=== PATIENT | female | born 1990 | race Caucasian/White ===

== ENCOUNTER 2020-08-15 14:03 | Outpatient (CLI) | payer OTHER ==
[2020-08-15 15:22] LABS: HCT - HEMATOCRIT 38.5 % (37.0-47.0); HGB - HEMOGLOBIN 13.3 g/dL (12.0-16.0); MEAN CORPUSCULAR HEMOGLOBIN 31.1 pg (27.0-31.0); MEAN CORPUSCULAR HGB CONC 34.5 g/dL (32.0-36.0); MEAN CORPUSCULAR VOLUME 90.2 fL (81.0-99.0); MEAN PLATELET VOLUME 9.6 fL (7.9-10.8); RED BLOOD COUNT 4.27 10^6/uL (4.20-5.40); RED CELL DISTRIBUTION WIDTH 12.4 % (12.0-15.0); WHITE BLOOD COUNT 11.5 x10^3/uL (4.8-10.8)
== END 2020-08-15 14:04 | disposition home or self-care (01) ==
LOC: LAB 14:03
PROVIDERS: ATTEND Advanced Practice Midwife
DX: Z34.90 Encounter for supervision of normal pregnancy, unspecified, unspecified trimester (principal)
CPT/HCPCS: 36415; 82950; 85027

== ENCOUNTER 2020-08-17 07:58 | Outpatient (CLI) | payer OTHER ==
[2020-08-17 08:45] LABS: GTT GLUCOSE,FASTING 82 mg/dL (70-100)
== END 2020-08-17 07:59 | disposition home or self-care (01) ==
LOC: LAB 07:58
PROVIDERS: ATTEND Advanced Practice Midwife
DX: O99.810 Abnormal glucose complicating pregnancy (principal)
CPT/HCPCS: 36415; 82951; 82952

== ENCOUNTER 2020-09-18 08:00 | Outpatient (CLI) | payer OTHER | END 2020-09-18 23:59 | disposition home or self-care (01) | LOC: LAB.WC 08:00 | PROVIDERS: ATTEND Nurse Practitioner Obstetrics & Gynecology | DX: R39.15 Urgency of urination (principal) | CPT/HCPCS: 87086 ==

== ENCOUNTER 2020-09-24 11:13 | Outpatient (CLI) | payer OTHER ==
--- NOTE | 2020-09-24 16:30 | Ultrasound Report ---
PROCEDURE: OB F/U or Repeat INDICATIONS: SIZE/DATE DISCREPENCY OUTSIDE/PRIOR DATING DATA: Last menstrual period (LMP): 02/05/2020. LMP-based estimated date of delivery (SRINIVAS): 11/11/2020. First dating scan (date and location): 04/06/2020. Estimated date of delivery (SRINIVAS) from first dating scan: 11/13/2020. The below data below was generated using the clinical SRINIVAS of 11/11/2020 TECHNIQUE: Real-time scanning was performed of the fetus, with image documentation and biometric measurements. COMPARISON: OB ultrasound report 04/06/2020 06/27/2020 07/09/2020 FINDINGS: General: A single living intrauterine gestation is present. Presentation: Vertex Placenta: Placental position is anterior, without previa. Amniotic fluid index: 17.6 cm, within normal limits for gestational age. 6.6 cm heart rate: 138 beats per minute. Maternal cervical canal: Not assessed biometrics: Biparietal diameter: 8.5 cm 34 weeks 1 day Head circumference: 31.7 cm 35 weeks 5 days Abdominal circumference: 31.4 cm 35 weeks 2 days Femur length: 6.1 cm 31 weeks 4 days Estimated gestational age from initial scan: 32 weeks 6 days Composite gestational age from present scan: 34 weeks 1 day Estimated weight and percentile: 23 80 g 82nd percentile Measurement variability in biometric dating: +/- 10 days from 12-20 weeks gestation, +/- 2 weeks from 20-30 weeks gestation, +/- 3 weeks at 30 weeks gestation or more. Other: Not applicable. IMPRESSION: 1. Single live intrauterine within normal limits for growth. 2. Estimated weight 82nd percentile Reviewed by: Lina Keith MD on 09/24/2020 4:28 PM PDT Approved by: Lina Keith MD on 09/24/2020 4:28 PM PDT Station ID: [id number]
--- NOTE | 2020-10-02 08:57 | CONSULTATION NOTE ---
Consultation Report: Asked to see patient by Karina Connor CNM in regards patients previous back surgery and possible regional anesthesia during labor. Patient had L4-S1 Laminectomy(no hardware) about 4 years ago. Still has some right sided leg weakness. No other PMH. has gone well up to this point. Patient is planning unmedicated but is open to possible regional anesthesia. Patient was more worried about unplanned emergency c section leading to General anesthesia. I discussed with her that if she was having an emergency c section she would more than likely require GETA even with an epidural in place. I discussed risks of epidural and spinal anesthesia. Discussed possible difficult placement s/p spinal surgery however I feel the patient will be able to have epidural or SAB if requested without issue. Questions answered.
== END 2020-09-24 11:14 | disposition home or self-care (01) ==
LOC: DI 11:13
PROVIDERS: ATTEND Nurse Practitioner Obstetrics & Gynecology
DX: O26.843 Uterine size-date discrepancy, third trimester (principal); Z3A.34 34 weeks gestation of pregnancy

== ENCOUNTER 2020-10-02 08:00 | Outpatient (CLI) | payer OTHER | END 2020-10-02 23:59 | disposition home or self-care (01) | LOC: LAB 08:00 | PROVIDERS: ATTEND Nurse Practitioner Obstetrics & Gynecology | DX: R39.15 Urgency of urination (principal) | CPT/HCPCS: 87086 ==

== ENCOUNTER 2020-10-18 08:00 | Outpatient (CLI) | payer OTHER ==
--- NOTE | 2020-10-18 14:12 | Ultrasound Report ---
PROCEDURE: OB F/U or Repeat INDICATIONS: UTERINE SIZE DATE DISCREPANCY OUTSIDE/PRIOR DATING DATA: Last menstrual period (LMP): . LMP-based estimated date of delivery (SRINIVAS): 11/11/2020. First dating scan (date and location): 04/06/2020. Estimated date of delivery (SRINIVAS) from first dating scan: 11/13/2020. The below data below was generated using the above SRINIVAS of 11/13/2020 TECHNIQUE: Real-time scanning was performed of the fetus, with image documentation and biometric measurements. Endovaginal scanning: Not needed COMPARISON: All prior OB ultrasound studies for this . FINDINGS: General: A single living intrauterine gestation is present. Presentation: Vertex Placenta: Placental position is anterior, without previa. Amniotic fluid index: 17.3 cm, normal for gestational age. heart rate: 143 beats per minute. Maternal cervical canal is not well seen due to vertex presentation of the fetus. biometrics: Biparietal diameter: 9.1 cm, 37 weeks 0 days Head circumference: 33.4 cm, 38 weeks 1 day Abdominal circumference: 35.5 cm, 39 weeks 3 days Femur length: 7.0 cm, 36 weeks 1 day Estimated gestational age from initial scan: 36 weeks 2 days. Composite gestational age from present scan: 37 weeks 5 days Estimated weight and percentile: 3440 g, 94th percentile. Measurement variability in biometric dating: +/- 10 days from 12-20 weeks gestation, +/- 2 weeks from 20-30 weeks gestation, +/- 3 weeks at 30 weeks gestation or more. Other: Not applicable. IMPRESSION: Single living intrauterine gestation with appropriate interval growth and no evidence of anomaly. The current estimated weight is 3440 g (94th percentile). The amniotic fluid in dex is 19.3 cm, normal. Reviewed by: Marek Marcial MD on 10/18/2020 2:10 PM PDT Approved by: Marek Marcial MD on 10/18/2020 2:10 PM PDT Station ID: [id number]
== END 2020-10-18 08:01 | disposition home or self-care (01) ==
LOC: DI 08:00
PROVIDERS: ATTEND Nurse Practitioner Obstetrics & Gynecology
DX: O26.843 Uterine size-date discrepancy, third trimester (principal); Z3A.37 37 weeks gestation of pregnancy

== ENCOUNTER 2020-10-22 21:02 | Inpatient (IN) | payer OTHER ==
[2020-10-22] MEDS ORDERED: OXYTOCIN/SODIUM CHLORIDE 500 ML IV PRN (21:44)
[2020-10-22] MEDS ORDERED: OXYTOCIN 10 UNIT/ML VIAL IM PRN (21:44)
[2020-10-22] MEDS ORDERED: TRANEXAMIC ACID IN NACL 1,000 MG/100 ML BAG IV PRN (21:44)
[2020-10-22] MEDS ORDERED: ONDANSETRON 4 MG/2 ML VIAL IVP PRN (21:44)
[2020-10-22] MEDS ORDERED: miSOPROStoL 200 MCG TABLET BC PRN (21:44)
[2020-10-22] MEDS ORDERED: METHYLERGONOVINE 0.2 MG/ML VIAL IM PRN (21:44)
[2020-10-22] MEDS ORDERED: fentaNYL 100 MCG/2 ML VIAL IVP PRN (21:44)
[2020-10-22] MEDS ORDERED: CARBOPROST TROMETHAMINE 250 MCG/ML AMP IM PRN (21:44)
[2020-10-22] MEDS ORDERED: LIDOCAINE-MPF 1% 30 ML VIAL ID PRN (21:44)
[2020-10-22] MEDS ORDERED: SODIUM CHLORIDE FLUSH 0.9% 10 ML SYRINGE IVP PRN (21:44)
[2020-10-22] MEDS ORDERED: LACTATED RINGERS 1,000 ML IV SCH (22:00)
[2020-10-22] MEDS ORDERED: AMPICILLIN 2 GM in SODIUM CHLORIDE 0.9% MINIBAG 100 ML IV ONE (22:00)
[2020-10-22 22:56] LABS: BASOPHILS % (AUTO) 0.4 %; EOSINOPHILS # (AUTO) 0.1 10^3/uL (0.0-0.7); HCT - HEMATOCRIT 41.9 % (37.0-47.0); LYMPHOCYTES # (AUTO) 2.5 10^3/uL (1.5-3.5); LYMPHOCYTES % (AUTO) 22.5 %; MEAN CORPUSCULAR HGB CONC 33.4 g/dL (32.0-36.0); MEAN CORPUSCULAR VOLUME 89.9 fL (81.0-99.0); MEAN PLATELET VOLUME 11.1 fL (7.9-10.8); MONOCYTES # (AUTO) 1.2 10^3/uL (0.0-1.0); MONOCYTES % (AUTO) 10.9 %; NEUTROPHILS # (AUTO) 7.2 10^3/uL (1.5-6.6); NEUTROPHILS % (AUTO) 64.2 %; PLT - PLATELET COUNT 196 10^3/uL (130-450); RED BLOOD COUNT 4.66 10^6/uL (4.20-5.40); RED CELL DISTRIBUTION WIDTH 12.8 % (12.0-15.0); WHITE BLOOD COUNT 11.2 x10^3/uL (4.8-10.8)
[2020-10-22] MEDS ORDERED: AMPICILLIN 2 GM VIAL IV ONE (23:24)
[2020-10-23] MEDS ORDERED: SODIUM CHLORIDE FLUSH 0.9% 10 ML SYRINGE IVP SCH (01:00)
[2020-10-23] MEDS ORDERED: ROPIVACAINE 0.2% 200 MG/100 ML BAG EP ONE (02:59)
--- NOTE | 2020-10-23 03:23 | ANESTHESIA ---
Pre-Anesthesia VS, & Labs - Diagnosis active labor - Procedure vaginal delivery Vital Signs: Temp Pulse Resp BP Pulse Ox 37.2 C 65 18 119/79 99 10/22/20 22:34 10/22/20 22:34 10/22/20 22:34 10/22/20 22:34 10/22/20 21:27 Height: 5 ft 7 in Weight (kg): 110 kg Body Mass Index: 38.0 BMI Classification: Obese - NPO Last Fluid Intake: clear liquids, labor - Is Patient ?: Yes - Lab Results Current Lab Results: Laboratory Tests 10/22/20 22:40: Blood Type O POSITIVE, Antibody Screen NEGATIVE 10/22/20 22:15: WBC 11.2 H, RBC 4.66, Hgb 14.0, Hct 41.9, MCV 89.9, MCH 30.0, MCHC 33.4, RDW 12.8, Plt Count 196, MPV 11.1 H, Neut # (Auto) 7.2 H, Lymph # (Auto) 2.5, [place] # (Auto) 1.2 H, Eos # (Auto) 0.1, Baso # (Auto) 0.0, Absolute Nucleated RBC 0.00, Nucleated RBC % 0.0 Fish Bones: 10/22/20 22:15 Home Medications and Allergies Active Medications Carboprost Tromethamine (Carboprost Tromethamine 250 Mcg/Ml Amp) 250 mcg IM Q15M PRN PRN Reason: Step 4: Hemorrhage protocol Stop: 10/27/20 21:46 Fentanyl (Fentanyl 100 Mcg/2 Ml Vial) 50 mcg IVP Q1H PRN PRN Reason: PAIN Oxytocin/Sodium Chloride (Pitocin/Sodium Chloride) 500 mls @ 999 mls/hr IV PRN PRN; Protocol PRN Reason: POST- HEMORR PREVENTION Stop: 10/27/20 21:46 Tranexamic Acid (Tranexamic 1,000 Mg/100ml-Nacl) 1,000 mg in 100 mls @ 600 mls/hr IV .ONCE PRN PRN Reason: EBL >1200mL and within 3hr Stop: 10/27/20 21:46 Lactated Ringer's (Lr) 1,000 mls @ 150 mls/hr IV .Q6H40M BAIRON Ampicillin Sodium 1 gm/ Sodium (Chloride) 100 mls @ 200 mls/hr IV Q4H BAIRON Lidocaine HCl (Lidocaine-Mpf 1% 30 Ml Vial) 30 ml ID .ONCE PRN PRN Reason: PERINEAL REPAIR Stop: 10/27/20 21:46 Methylergonovine Maleate (Methylergonovine 0.2 Mg/Ml Vial) 0.2 mg IM .ONCE PRN PRN Reason: Step 2: Hemorrhage protocol Stop: 10/27/20 21:46 Misoprostol (Misoprostol 200 Mcg Tablet) 800 mcg BC .ONCE PRN PRN Reason: Step 3: Hemorrhage protocol Stop: 10/27/20 21:46 Ondansetron HCl (Ondansetron 4 Mg/2 Ml Vial) 4 mg IVP Q4H PRN PRN Reason: Nausea / Vomiting Oxytocin (Oxytocin 10 Unit/Ml Vial) 10 unit IM .ONCE PRN PRN Reason: Step one: If no IV access Stop: 10/27/20 21:46 Sodium Chloride (Sodium Chloride Flush 0.9% 10 Ml Syringe) 10 ml IVP PRN PRN PRN Reason: NEEDED PER PROVIDER ORDERS Sodium Chloride (Sodium Chloride Flush 0.9% 10 Ml Syringe) 10 ml IVP 0100,0900,1700 BAIRON PNV Allergies/Adverse Reactions: Allergies Allergy/AdvReac Type Severity Reaction Status Date / Time No Known Drug Allergies Allergy Verified 10/22/20 23:20 Anes History & Medical History - Anesthetic History Anesthesia Complications: reports: No previous complications - Medical History Cardiovascular: reports: None Pulmonary: reports: None Gastrointestinal: reports: None Urinary: reports: None Neuro: reports: None Musculoskeletal: reports: Other (L4-L5, L5-S1 laminectomy) Endocrine/Autoimmune: reports: None Blood Disorders: reports: None Skin: reports: None Smoking Status: Never smoker Psychosocial: reports: No issues indicated History of Cancer?: No - Surgical History Orthopedic: reports: Spine surgery - Obstetrical History : 1 Parity: 0 Events: reports: None Complications: reports: None Exam General: Alert, Oriented x3, Cooperative, No acute distress Dental: WNL Mouth Openin Fingerbreadth Neck Mobility: Normal Mallampati classification: II Thyromental Distance: 4-6 cm Mental/Cognitive Status: Alert/Oriented X3, Normal for patient Plan Anesthesia Type: Epidural Consent for Procedure(s) Verified and Reviewed: Yes Code Status: Attempt Resuscitation ASA classification: 2-Mild systemic disease Is this case an emergency?: No
[2020-10-23] MEDS ORDERED: NALOXONE 0.4 MG/ML VIAL IVP PRN (03:24)
[2020-10-23] MEDS ORDERED: ROPIVACAINE 0.2% 200 MG/100 ML BAG EP PRN (03:24)
[2020-10-23] MEDS ORDERED: NALBUPHINE 10 MG/ML AMP IVP PRN (03:24)
[2020-10-23] MEDS ORDERED: ePHEDrine 50 MG/ML VIAL IVP PRN (03:24)
[2020-10-23] MEDS: AMPICILLIN 1 GM in SODIUM CHLORIDE 0.9% MINIBAG 100 ML IV SCH ×2 (03:30→07:33)
--- NOTE | 2020-10-23 08:20 | HISTORY & PHYSICAL EXAMINATION ---
Admit History - Visit Reason Visit Reason: Membranes rupture - : 1 Parity: 0 Premature: 0 Ectopic: 0 : 0 Care: positive: Other ([facility]) Risk/History: positive: None Complications This : positive: None, Other (GBS status could not be found in the records. Repeat GBS sent and antibiotics started.) Smoking Status: Never smoker - Mother's Labs Mother's Blood Type: positive: O Mother's RH: positive: Positive GBS: positive: Other (Unknown) Rubella Status: positive: Immune Meds/Allgy - Allergies Allergies/Adverse Reactions: Allergies Allergy/AdvReac Type Severity Reaction Status Date / Time No Known Drug Allergies Allergy Verified 10/22/20 23:20 Review of Systems - Constitutional Constitutional: denies: Fatigue - Cardiovascular Cariovascular: denies: Irregular heart rate, Palpitations - Respiratory Respiratory: denies: Cough, Sputum production - Gastrointestinal Gastrointestinal: denies: Abdominal pain - Musculoskeletal Musculoskeletal: denies: Muscle pain - Integumentary Integumentary: denies: Rash - Neurological Neurological: denies: General weakness Physical - Abdominal Exam Vital Signs: Temp Pulse Resp BP Pulse Ox 99.0 F 65 18 119/79 99 10/22/20 22:34 10/22/20 22:34 10/22/20 22:34 10/22/20 22:34 10/22/20 21:27 Contraction Frequency (min/apart): Patient was not feeling contractions on admission Contraction Intensity: positive: Mild Uterine Resting Tone: positive: Soft - Monitoring Heart Rate Baseline: 140, moderate variability Strip Review: positive: Category I - Presentation Presentation: positive: Vertex - Vaginal Exam Membranes: positive: Membranes ruptured Dilation (in cm): 3-4 Effacement (%): 50 Station: positive: -1 Cervical Position: positive: Midposition - Other Notes Labor Progress Note/Additional Text: Patient presented with SROM at 20:40pm on 10/22/20. Patient had clear fluid and was not having/feeling contractions. Patient had excellent care at [facility]. Patient did not have GBS in the lab, so she had a repeat rapid GBS collected and was started on Ampicillin during labor. Plan for Labor - Plan For Labor I expect patient to be DC'd or transferred within 96 hours.: Yes Plan for Labor: A-IUP 37 2/7 with SROM P- Admit, Epidural when desired. Pitocin augmentation if needed.
--- NOTE | 2020-10-23 08:45 | PROVIDER PROGRESS NOTE ---
Labor Progress Note - Uterine Monitoring Uterine Monitoring Mode: positive: External toco Contraction Frequency (min/apart): 2-3 minutes apart Contraction Intensity: positive: Moderate to strong Uterine Resting Tone: positive: Soft - Monitoring Monitor Mode: positive: External ultrasound Heart Rate Variability: positive: Moderate (6-25 bmp) Accelerations: positive: Present, 15x15 Decelerations: positive: None Strip Review: positive: Category I - Vaginal Exam Dilation (in cm): 9.5 Effacement (%): 100 Station: 1 - Labor Progress Note Labor Progress Note/Additional Text: Contacted at 6:20 this morning and patient was 9.5/100/1+ Monitor is Baseline 140 with moderate variability and Accelerations. No decelerations. Patient is comfortable with her epidural. A-IUP 37 2/, Unknown GBS, Being treated. P- Expectant management and anticipate
--- NOTE | 2020-10-23 10:28 | DELIVERY NOTE ---
Delivery Note - Labor Labor: positive: Spontaneous - Delivery Method Delivery Method: positive: Spontaneous vaginal delivery - Presentation Presentation: positive: Vertex, DEO - right occiput anterior, Other (Infants head delivered DEO, and restitution to OP) - Nuchal Cord Nuchal Cord: positive: None - Anesthetic Anesthetic Type: - Amniotic Fluid Description Amniotic Fluid Description: positive: Clear - Episiotomy Type Episiotomy Type: positive: None - Laceration Laceration: positive: 2nd degree, Periurethral, Vaginal - Suture Suture Type: positive: Vicryl Suture Size: positive: 2-0, 3-0 - Delivery Outcome Delivery Outcome: positive: Livebirth - [place]: positive: Placed in direct skin contact with mother sex: positive: Female : 9/9 Apgars - Cord Cord: positive: 3 vessels - Placenta Placenta: positive: Intact, Spontaneous, Other ([place] presentation. We had two episodes of brisk bleeding while placenta was .) - Delivery Comments (Free Text/Narrative) Delivery Comments (Free Text/Narrative): Patient presented to labor and delivery with spontaneous Rupture of membranes. Patient was not feeling contractions prior to arrival at hospital. Patient was 3-4cm on arrival and -1 station. Patient had Category I monitor strip on admission. Patient's labor progressed and patient had epidural placed. Patient progressed in normal fashion to complete. Patient had a second stage of labor of 39 minutes. Patient pushed the head to 3+ station. Prior to delivery of head there was bleeding noted from introitus and from right periurethral area. Head delivered over perineum in DEO position. Maternal forces were utilized to deliver the anterior shoulder. As the anterior shoulder was delivering the infant rotated to direct OP position for restitution. The remainder of the infant delivered spontaneously. The infant was placed on the mother's abbdomen. Delayed cord clamping after two minutes was performed. The was a living female with APGARS of 9/9. While waiting for cord clamping there were two episodes of brisk bleeding, and it appeared to be from placental separation, but placenta was not ready to be delivered yet. The cord was clamped times two and cut by the father of the infant. The pitocin was started in the IV. The placenta delivered in [place] presentation, spontaneously, JERRICA present. The cervix was inspected and found to be intact. The 's cord was very thick and healthy. Cord blood was obtained, but another gush of blood from uterus contaminated the container. RN lois infant cord blood from the cord. The perineum and a second degree laceration that extended to the right of the midline and up the vaginal sidewall. 2-0 Vicryl in a 2 layer running fashion to repair second degree laceration. 2-0 vicryl in running fashion to repair the vaginal mucosa and the vaginal sidewall of the laceration. Attention was then directed to the periurethral area. 3-0 Vicryl in a running fashion was utilized to repair the right periurethral laceration that started at the apex of the skin and extended to the right vaginal sidewall. Good hemostasis and approximation were obtained. The Left periurethral area had a laceration that extended from the [place] of the skin to the left vaginal sidewall. The laceration was repaired with 3-0 Vicryl. Good hemostasis and approximation were obtained. Good approximation and hemostasis was obtained. EBL is 500cc. Sponge, instrument and needle counts are correct. Patient is resting in stable condition.
[2020-10-23] MEDS ORDERED: ACETAMINOPHEN 325 MG TABLET PO PRN (10:50)
[2020-10-23] MEDS ORDERED: OXYTOCIN/SODIUM CHLORIDE 500 ML IV PRN (10:50)
[2020-10-23] MEDS ORDERED: HYDROCORTISONE 1% CREAM 28 GM TUBE PR PRN (10:50)
[2020-10-23] MEDS ORDERED: WITCH HAZEL/GLYCERIN 1 PAD TOP PRN (10:50)
[2020-10-23] MEDS ORDERED: LACTATED RINGERS 1,000 ML IV SCH (11:00)
[2020-10-23] MEDS: IBUPROFEN 600 MG TABLET PO SCH (12:10)
[2020-10-23] MEDS: DOCUSATE SODIUM 100 MG CAPSULE PO SCH (20:53)
[2020-10-24 07:14] LABS: BASOPHILS # (AUTO) 0.1 10^3/uL (0.0-0.1); BASOPHILS % (AUTO) 0.5 %; EOSINOPHILS # (AUTO) 0.2 10^3/uL (0.0-0.7); EOSINOPHILS % (AUTO) 1.1 %; HCT - HEMATOCRIT 34.9 % (37.0-47.0); HGB - HEMOGLOBIN 11.7 g/dL (12.0-16.0); LYMPHOCYTES # (AUTO) 2.4 10^3/uL (1.5-3.5); LYMPHOCYTES % (AUTO) 18.2 %; MEAN CORPUSCULAR HEMOGLOBIN 30.5 pg (27.0-31.0); MEAN CORPUSCULAR HGB CONC 33.5 g/dL (32.0-36.0); MEAN CORPUSCULAR VOLUME 91.1 fL (81.0-99.0); MEAN PLATELET VOLUME 10.5 fL (7.9-10.8); MONOCYTES # (AUTO) 1.4 10^3/uL (0.0-1.0); MONOCYTES % (AUTO) 10.4 %; NEUTROPHILS # (AUTO) 9.2 10^3/uL (1.5-6.6); NEUTROPHILS % (AUTO) 69.1 %; PLT - PLATELET COUNT 177 10^3/uL (130-450); RED BLOOD COUNT 3.83 10^6/uL (4.20-5.40); RED CELL DISTRIBUTION WIDTH 12.9 % (12.0-15.0); WHITE BLOOD COUNT 13.2 x10^3/uL (4.8-10.8)
[2020-10-24] MEDS: DOCUSATE SODIUM 100 MG CAPSULE PO SCH (08:32)
[2020-10-24] MEDS: IBUPROFEN 600 MG TABLET PO SCH ×3 (08:32→22:15)
--- NOTE | 2020-10-24 12:38 | PROVIDER PROGRESS NOTE ---
Subjective - Prog Note Date Prog Note Date: 10/24/20 Prog Note Time: 12:36 - Subjective Pt reports feeling: Improved (Patient is doing well. Patient is ambulating, urinating, and tolerating a regular diet. Patient is breast feeding. Pain is well controlled.) Objective - Vital Signs/Intake & Output Reviewed Vital Signs: Yes Intake & Output: Intake & Output 10/21/20 10/22/20 10/23/20 10/24/20 23:59 23:59 23:59 23:59 Intake Total 1100 100 Output Total 450 Balance 650 100 - Objective General Appearance: positive: No acute distress Cardiovascular: positive: Regular rate & rhythm, No murmur, No gallop Abdomen: positive: Non-tender, Nml bowel sounds, Other (Fundus is firm and below the umbilicus.) Skin: positive: Color nml Extremities: positive: No pedal edema. negative: Calf tenderness Neurologic/Psychiatric: positive: Oriented x3, Mood/affect nml (Lochia is minimal.) - Lab Results Fish Bones: 10/24/20 07:05 Other Labs: Lab Results x24hrs 10/24/20 10/22/20 10/22/20 Range/Units 07:05 22:15 07:05 WBC 13.2 H (4.8-10.8) x10^3/uL RBC 3.83 L (4.20-5.40) 10^6/uL Hgb 11.7 L (12.0-16.0) g/dL Hct 34.9 L (37.0-47.0) % MCV 91.1 (81.0-99.0) fL MCH 30.5 (27.0-31.0) pg MCHC 33.5 (32.0-36.0) g/dL RDW 12.9 (12.0-15.0) % Plt Count 177 (130-450) 10^3/uL MPV 10.5 (7.9-10.8) fL Neut # (Auto) 9.2 H (1.5-6.6) 10^3/uL Lymph # (Auto) 2.4 (1.5-3.5) 10^3/uL [place] # (Auto) 1.4 H (0.0-1.0) 10^3/uL Eos # (Auto) 0.2 (0.0-0.7) 10^3/uL Baso # (Auto) 0.1 (0.0-0.1) 10^3/uL Absolute Nucleated RBC 0.00 x10^3/uL Nucleated RBC % 0.0 /100WBC Group B Strep (PCR) POSITIVE A (NEGATIVE) Blood Type Recheck O POSITIVE - Other Results/Comments Other Results/Comments: A- Day 1 Doing well. 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 P- Routine orders with probable discharge to home tomorrow.
[2020-10-25 08:28] VITALS: BP 106/71
[2020-10-25] MEDS: DOCUSATE SODIUM 100 MG CAPSULE PO SCH (09:59)
--- NOTE | 2020-10-25 10:15 | DISCHARGE SUMMARY ---
"Discharge Summary Admit Date: 10/23/20 Discharge Date: 10/25/20 Discharging Provider: Jason Thacker DO Condition at Discharge: Good Discharge Disposition: 01 Home, Self Care Discharge Facility Name: [facility] - DIAGNOSES Admission Diagnoses: IUP 37 2/7 with SROM. Discharge Diagnoses with Status of Each Condition: S/P with Repair of Lacerations. - HPI History of Present Illness: 30yo 37 2/7 weeks with SROM at home and presented with contractions. Patient had excellent care at [facility]. GBS was unknown on admission and she was treated for unknown GBS status. GBS was later resulted as positive. - CONSULTS | PROCEDURES Procedures: Epidural Normal Spontaneous Vaginal Delivery. Repair of lacerations. - HOSPITAL COURSE Hospital Course: Patient presented to Labor and delivery with SROM. Patient was not feeling regular contractions, but she was dilated to 3-4 cm. Patient progressed in labor. Patient had epidural anesthesia placed. Patient progressed in a normal fashion to complete and 2+ station. Patient had a normal second stage of labor. Patient had over intact perineum. Living female with Apgars of 8/9 was born. Lacerations were repaired. and mother were doing well. course has been routine. Mother is ambulating, urinating and tolerating a regular diet. Patient's pain is controlled with Motrin and Tylenol. Patient is having issues with not latching to breast. She has been pumping and feeding infant clostrum and formula. Patient is continuing to attempt to breast feed. - ALLERGIES Allergies/Adverse Reactions: Allergies Allergy/AdvReac Type Severity Reaction Status Date / Time No Known Drug Allergies Allergy Verified 10/22/20 23:20 - PHYSICAL EXAM AT DISCHARGE General Appearance: positive: No acute distress Respiratory: positive: Breath sounds nml. negative: Wheezes, Rales, Rhonchi Cardiovascular: positive: Regular rate & rhythm, No murmur, No gallop Abdomen: positive: Non-tender, Nml bowel sounds, Other (Fundus is firm and below the umbilicus.). negative: Guarding, Rebound Skin: positive: Color nml Neurologic/Psychiatric: positive: Oriented x3, Mood/affect nml Reflexes: Knee (R): 2+ - LABS Result Diagrams: 10/24/20 07:05 - QUALITY (Female Hip Fx Only) Was patient sent home on osteoporosis medication?: No - FOLLOW UP Follow Up: October 30 [facility] Rlyie Connor CNM - TIME SPENT Time Spent in Discharge (Minutes): 45"
--- NOTE | 2020-10-25 10:33 | Discharge Plan ---
Discharge Plan Problem Reviewed?: No Disposition: Home, Self Care Condition: Good Diet: Regular Activity Restrictions: Pelvic Rest Shower Restrictions: No Driving Restrictions: No No Smoking: If you smoke, Please STOP! Call for help.
== END 2020-10-25 11:00 | disposition home or self-care (01) | DRG 807 ==
LOC: WFO 21:02 → FBP 21:05 → WFO 21:43 → FBP 21:44
PROVIDERS: ADMIT Obstetrics & Gynecology; ATTEND Obstetrics & Gynecology
PROC: 0KQM0ZZ Repair Perineum Muscle, Open Approach (ICD-10-PCS; principal; 2020-10-23)
PROC: 10E0XZZ Delivery of Products of Conception, External Approach (ICD-10-PCS; 2020-10-23)
PROC: 0UQMXZZ Repair Vulva, External Approach (ICD-10-PCS; 2020-10-23)
DX: O71.82 Other specified trauma to perineum and vulva (principal); Z37.0 Single live birth; O99.824 Streptococcus B carrier state complicating childbirth; Z3A.37 37 weeks gestation of pregnancy; O70.1 Second degree perineal laceration during delivery
CPT/HCPCS: 36415; 85025; 86850; 86900; 86901; 87635; 87797; A9270; J7120; 86769; 87081; 99212